=== PATIENT | female | born 1960 | race Caucasian/White ===

== ENCOUNTER 2021-12-06 11:23 | Emergency (ER) | payer OTHER ==
[~2021-12-06] VITALS: Ht 157.5 cm; Wt 72.0 kg
[2021-12-06 16:27] VITALS: BP 123/78
== END 2021-12-06 16:27 | disposition home or self-care (01) ==
LOC: EMS 11:23
DX: S60.022A Contusion of left index finger without damage to nail, initial encounter (principal); S60.032A Contusion of left middle finger without damage to nail, initial encounter; E11.9 Type 2 diabetes mellitus without complications; I10 Essential (primary) hypertension; Z98.890 Other specified postprocedural states; Z90.710 Acquired absence of both cervix and uterus; W23.0XXA Caught, crushed, jammed, or pinched between moving objects, initial encounter; Y93.G3 Activity, cooking and baking; Y92.89 Other specified places as the place of occurrence of the external cause; Y99.0 Civilian activity done for income or pay
CPT/HCPCS: 99283